=== PATIENT | female | born 1950 | race Caucasian/White ===

== ENCOUNTER → 2017-09-22 | Outpatient (CLI) | payer MEDICARE ==
[~2017-09-22] MED LIST: ALBU90OI61 INH; AMIT25 PO; ASCO500; ASPI81EC; CARB100ER; CRUTCH3 USE; FAMO20 PO; FLUT44OIA IH; HYDACE5 PO; LEVSOD25 PO; LORA.5; LORA1 PO; LORA10ER PO; METF850; METF850 PO; MULVITA; NAPR500; O2; OMEP20ER PO; OXYACE5T PO; OXYC5; PROACE100; SERT100; SUMA25 PO; TRAM50; VENL75ER PO; ZOLP10
[2017-09-22 15:15] LABS: Appearance, Urine Clear (Clear); Bilirubin, Urine Neg (Neg); Blood, Urine Neg (Neg); Color, Urine Yellow (P-Yellow); Glucose Qualitative, Urine Neg (Neg); Ketones, Urine Neg (Neg); Leukocyte Esterase, Urine Neg (Neg); Nitrite, Urine Neg (Neg); Protein, Urine Neg (Neg); Specific Gravity, Urine 1.015 (1.003-1.022); Urobilinogen, Urine NORM (Normal)
== END ==
LOC: LAB EV 08:30
PROVIDERS: Physician Assistant
DX: R32 Unspecified urinary incontinence (principal)
CPT/HCPCS: 81003

== ENCOUNTER 2018-11-14 05:56 | Day surgery (SDC) | payer MEDICARE ==
[~2018-11-14] VITALS: Ht 160 cm; Wt 135.0 kg
[~2018-11-14 05:56] MED LIST changes: +Abilify2 MG; +CARV25 PO; +LOSA25 PO; +PRAV20 PO; +PROAIR RESPICL90 MCG; +WARF5 PO
--- NOTE | 2018-11-14 10:55 | NUR ---
TR BAND REMOVED FROM RIGHT WRIST, RED CLOTH DOT DRESSING APPLIED. SITE APPEARS TO BE STABLE, SOFT, NON-TENDER, NO ACTIVE BLEEDING, OOZING, OR PAIN PER PT. WHITE ARM BOARD AND SLING APPLIED TO RIGHT ARM FOR STABILIZATION/SUPPORT. PT VERBALIZED UNDERSTANDING OF D/C INSTRUCTIONS. PAPERWORK PROVIDED TO HER IN [facility]. FAMILY ALSO PRESENT DURING DISPO INSTRUCTION REVIEW. IV REMOVED FROM LAC WITH CATH INTACT, PRESSURE DRESSING APPLIED. PT GETS DRESSED WITH LIMITED ASSISTANCE FROM THIS NURSE. PT TAKEN OUT TO PRIVATE VEHICLE VIA W/C. NADN AT TIME OF DISPO. ENCOURAGED TO FOLLOW UP SCHEDULED WITH PROVIDER. VSS.
== END 2018-11-14 11:00 | disposition home or self-care (01) ==
LOC: MHTC 05:56
DX: I25.10 Atherosclerotic heart disease of native coronary artery without angina pectoris (principal); I42.9 Cardiomyopathy, unspecified; I35.0 Nonrheumatic aortic (valve) stenosis; I11.0 Hypertensive heart disease with heart failure; I50.40 Unspecified combined systolic (congestive) and diastolic (congestive) heart failure; I48.91 Unspecified atrial fibrillation; J44.9 Chronic obstructive pulmonary disease, unspecified; E78.5 Hyperlipidemia, unspecified; F32.9 Major depressive disorder, single episode, unspecified; G47.33 Obstructive sleep apnea (adult) (pediatric); Z88.0 Allergy status to penicillin; Z88.2 Allergy status to sulfonamides; Z88.5 Allergy status to narcotic agent; Z88.8 Allergy status to other drugs, medicaments and biological substances; Z88.1 Allergy status to other antibiotic agents; Z79.899 Other long term (current) drug therapy; Z79.01 Long term (current) use of anticoagulants; Z79.51 Long term (current) use of inhaled steroids
CPT/HCPCS: 93458; 99152; 99153; C1769; C1894; J1644; J2250; J3010; J7030; Q9967

== ENCOUNTER → 2020-06-24 | Outpatient (CLI) | payer OTHER ==
[2020-06-24 08:48] LABS: BASOPHILS ABSOLUTE AUTO 0.05 K/mm3 (0.00-0.23); BASOPHILS PERCENT AUTO 1 % (0-2); EOSINOPHILS ABSOLUTE AUTO 0.12 K/mm3 (0.00-0.68); EOSINOPHILS PERCENT AUTO 2 % (0-6); Hematocrit 43.7 % (33.0-51.0); Hemoglobin 14.4 g/dL (11.5-16.0); IMMATURE GRAN ABSOLUTE AUTO 0.02 K/mm3 (0.00-0.10); IMMATURE GRAN PERCENT AUTO 0 % (0-1); LYMPHOCYTES ABSOLUTE AUTO 1.55 K/mm3 (0.84-5.20); LYMPHOCYTES PERCENT AUTO 27 % (21-46); MONOCYTES ABSOLUTE AUTO 0.56 K/mm3 (0.16-1.47); MONOCYTES PERCENT AUTO 10 % (4-13); Mean Corpuscular HGB 30.5 pg (26.0-34.0); Mean Corpuscular Volume 93 fL (80-100); Mean Platelet Volume 11.4 fL (9.1-12.4); NEUTROPHILS PERCENT AUTO 60 % (41-73); Platelet Count 201 K/mm3 (150-400); RDW Standard Deviation 47.6 fL (35.1-46.3); Red Blood Cell Count 4.72 M/mm3 (3.80-5.20)
[2020-06-24 09:05] LABS: Alanine Aminotransfer (ALT/SGP 41 U/L (12-78); Albumin, Blood 3.6 g/dL (3.4-5.0); Albumin/Globulin Ratio 0.8 (0.8-1.8); Alk Phos 112 U/L (40-126); Anion Gap 9 mmol/L (6-16); Aspartate Aminotrans (AST/SGOT 27 U/L (12-37); Bilirubin, Total 0.5 mg/dL (0.1-1.0); Blood Urea Nitrogen 24 mg/dL (8-24); CO2, Blood 30 mmol/L (21-32); Calcium, Blood 10.4 mg/dL (8.5-10.1); Chloride, Blood 100 mmol/L (98-108); Globulin, Blood 4.5 g/dL (2.2-4.0); Glomerular Filtration Rate 55 (60-); Glucose, Blood 90 mg/dL (70-99); Potassium, Blood 4.3 mmol/L (3.5-5.5); Sodium, Blood 139 mmol/L (136-145); Total Protein, Blood 8.1 g/dL (6.4-8.2); Troponin I <0.017 ng/mL (0.000-0.040)
[2020-06-24 09:23] LABS: International Normalized Ratio 3.36; Prothrombin Time Results 33.9 Sec (9.7-11.5)
== END ==
LOC: LAB SHORT 08:41
PROVIDERS: Physician Assistant
DX: Z79.01 Long term (current) use of anticoagulants (principal); Z51.81 Encounter for therapeutic drug level monitoring; I48.91 Unspecified atrial fibrillation
CPT/HCPCS: 80053; 84484; 85025; 85610

== ENCOUNTER → 2020-07-07 | Outpatient (CLI) | payer OTHER ==
[2020-07-07 19:45] LABS: Appearance, Urine Clear (Clear); Bilirubin, Urine Neg (Neg); Blood, Urine Neg (Neg); Color, Urine Yellow (P-Yellow); Glucose Qualitative, Urine Neg (Neg); Ketones, Urine Neg (Neg); Leukocyte Esterase, Urine 1+ (Neg); Nitrite, Urine Neg (Neg); Protein, Urine Neg (Neg); Specific Gravity, Urine 1.015 (1.003-1.022); Urobilinogen, Urine NORM (Normal); pH, Urine 6.5 (5.0-8.0)
[2020-07-07 19:53] LABS: Bacteria Mod /hpf; Calcium Oxalate Crystals Many /hpf; Red Blood Cells, Urine Not Seen /hpf (0-2); Squamous Epithelial Cells Few /hpf (Few); White Blood Cells, Urine 0-2 /hpf (0-5)
== END ==
LOC: LAB SHORT 19:24
PROVIDERS: Physician Assistant
DX: N39.0 Urinary tract infection, site not specified (principal)
CPT/HCPCS: 81001; 87086

== ENCOUNTER 2022-11-01 13:06 | Day surgery (SDC) | payer OTHER ==
[~2022-11-01] VITALS: Ht 160 cm; Wt 120.4 kg
[2022-11-01] MEDS ORDERED: OMEP20ER (13:25)
[2022-11-01] MEDS ORDERED: Bisoprolol Fumar5 MG (13:25)
[2022-11-01 15:34] VITALS: BP 100/77
--- NOTE | 2022-11-01 15:37 | NUR ---
11/01/[address] AWARE OF HR FLUCTUATING 115-125 IT WAS AT THE START OF THE PROCEDURE. PER DR FORREST, INSTRUCT PATIENT TO FOLLOW UP WITH PRIMARY CARE AND THAT SHE NEEDS TO BE ON INCREASED DOSE OF BETA SHIVANI. THIS INFORMATION WAS COMMUNICATED TO THE PATIENT BY BOTH DR FORREST AND RN. PATIENT IS NON-SYMPTOMATIC AND VERBALIZES UNDERSTANDING. INSTRUCTIONS TO FOLLOW UP WITH PCP ABOUT BETA SHIVANI WRITTEN ON DISCHARGE INSTRUCTIONS.
== END 2022-11-01 15:28 | disposition home or self-care (01) ==
LOC: ORSCSDS 13:06
PROVIDERS: Internal Medicine Gastroenterology
PROC: 0DBL8ZX Excision of Transverse Colon, Via Natural or Artificial Opening Endoscopic, Diagnostic (ICD-10-PCS; principal; 2022-11-01 14:15)
PROC: 0DB68ZX Excision of Stomach, Via Natural or Artificial Opening Endoscopic, Diagnostic (ICD-10-PCS; principal; 2022-11-01 14:15)
PROC: 0DBH8ZX Excision of Cecum, Via Natural or Artificial Opening Endoscopic, Diagnostic (ICD-10-PCS; principal; 2022-11-01 14:15)
DX: R13.10 Dysphagia, unspecified (principal); Z12.11 Encounter for screening for malignant neoplasm of colon; K44.9 Diaphragmatic hernia without obstruction or gangrene; K21.9 Gastro-esophageal reflux disease without esophagitis; D12.0 Benign neoplasm of cecum; D12.3 Benign neoplasm of transverse colon; K64.8 Other hemorrhoids; K22.89 Other specified disease of esophagus; K57.30 Diverticulosis of large intestine without perforation or abscess without bleeding; K63.89 Other specified diseases of intestine; N18.30 Chronic kidney disease, stage 3 unspecified; J44.9 Chronic obstructive pulmonary disease, unspecified; Z98.84 Bariatric surgery status; I48.91 Unspecified atrial fibrillation; I50.9 Heart failure, unspecified; G47.33 Obstructive sleep apnea (adult) (pediatric); E03.9 Hypothyroidism, unspecified; I25.10 Atherosclerotic heart disease of native coronary artery without angina pectoris; E78.5 Hyperlipidemia, unspecified; Z79.01 Long term (current) use of anticoagulants; Z79.899 Other long term (current) drug therapy
CPT/HCPCS: 88305; 88342; J0461; J2001; J2405; J7120; Q9968